=== PATIENT | male | born 1965 | race African-American/Black ===

== ENCOUNTER 2022-02-04 22:39 | Emergency (ER) | payer MEDICAID ==
[~2022-02-04] VITALS: Ht 182.9 cm; Wt 149.7 kg
[2022-02-05] MEDS ORDERED: ASCO500C18 PO (01:22)
[2022-02-05] MEDS ORDERED: POTA10CA43 PO (01:22)
[2022-02-05] MEDS ORDERED: GABA-532 PO (01:22)
[2022-02-05] MEDS ORDERED: ZINC10LO5 PO (01:22)
[2022-02-05] MEDS ORDERED: CARV25TA2 PO (01:22)
[2022-02-05] MEDS ORDERED: AMLO10TA59 PO (01:22)
[2022-02-05] MEDS ORDERED: FAMO-132 PO (01:22)
[2022-02-05] MEDS ORDERED: ATOR20TA PO (01:22)
[2022-02-05] MEDS ORDERED: tumeric PO (01:22)
[2022-02-05] MEDS ORDERED: PRAZ2CAP2 PO (01:22)
[2022-02-05] MEDS ORDERED: TAMS-3 PO (01:22)
[2022-02-05] MEDS ORDERED: ALLO300T2 PO (01:22)
[2022-02-05] MEDS ORDERED: ASPI81TA31 PO (01:22)
[2022-02-05] MEDS ORDERED: CLON0.1T PO (01:22)
[2022-02-05] MEDS ORDERED: LISI40TA13 PO (01:22)
[2022-02-05] MEDS ORDERED: HYDR100T27 PO (01:22)
[2022-02-05] MEDS ORDERED: CHOL3000 PO (01:22)
[2022-02-05] MEDS ORDERED: LORA10TA7 PO (01:22)
[2022-02-05] MEDS ORDERED: MULT-594 PO (01:22)
[2022-02-05] MEDS ORDERED: FURO40TA5 PO (01:22)
[2022-02-05] MEDS ORDERED: METF-495 PO (01:24)
--- NOTE | 2022-02-05 01:24 | NUR ---
pt ambulated to room 5a c/o bilateral flank pain.
--- NOTE | 2022-02-05 01:26 | NUR ---
Dr. Rahman at bedside for MSE.
[2022-02-05] MEDS ORDERED: KETOROLAC TROMETHAMINE 60 MG INJ IM ONE ×2 (01:44→01:45)
[2022-02-05] MEDS ORDERED: ONDANSETRON HCL 4 MG TABLET ONE (01:44)
[2022-02-05] MEDS ORDERED: ONDANSETRON HCL 4 MG TABLET PO ONE (01:45)
[2022-02-05] MEDS ORDERED: HYDROMORPHONE 1 MG/1 ML DISP.SYRIN ONE (01:45)
[2022-02-05] MEDS ORDERED: HYDROMORPHONE 2 MG/1 ML DISP.SYRIN ONE (01:45)
[2022-02-05] MEDS ORDERED: HYDROMORPHONE 1 MG/1 ML DISP.SYRIN IM ONE (01:45)
[2022-02-05 01:51] LABS: *BILIRUBIN,URIN NEGATIVE (NEGATIVE); *BLOOD, URINE NEGATIVE (NEGATIVE); *CLARITY,URINE CLEAR (CLEAR); *COLOR,URINE YELLOW (YELLOW); *KETONES,URINE NEGATIVE (NEGATIVE); *UROBILINOGEN,URINE 0.2 E.U./dl (NORMAL); LEUKOCYTE ESTERASE ,URINE NEGATIVE (NEGATIVE); NITRITE, URINE NEGATIVE (NEGATIVE); PH,URINE 5.5 (5.0-8.0); UGLUCOSE NEGATIVE (NEGATIVE)
[2022-02-05 01:52] LABS: HEMATOCRIT 37.6 % (36.7-47.1); MEAN CORPUSCULAR HEMOGLOBIN 30.9 uug (23.8-33.4); MEAN CORPUSCULAR VOLUME 92.3 fL (73.0-96.2); PLATELET COUNT (AUTO) 196 K/uL (152-348)
[2022-02-05 02:01] LABS: CREATININE 1.4 mg/dL (0.6-1.3); POTASSIUM 3.3 mmol/L (3.5-5.1)
--- NOTE | 2022-02-05 02:25 | NUR ---
pt taken to cat scan.
--- NOTE | 2022-02-05 02:45 | NUR ---
pt return from cat scan.
[2022-02-05] MEDS ORDERED: MAGNESIUM SULFATE/D5W 100 ML IV SCH (03:00)
[2022-02-05] MEDS ORDERED: MAGNESIUM SULFATE 1 GM/2 ML VIAL ONE (03:10)
--- NOTE | 2022-02-05 04:00 | NUR ---
Dr. Rahman at bedside speaking with the pt.
[2022-02-05] MEDS: MAGNESIUM SULFATE/D5W 100 ML IV SCH ×3 (04:01→05:26)
[2022-02-05] MEDS ORDERED: OXYC-128 PO (04:12)
[2022-02-05] MEDS ORDERED: POTASSIUM BICARBONATE/CIT AC 25 MEQ TABLET.EFF ONE (04:23)
[2022-02-05] MEDS ORDERED: POTASSIUM BICARBONATE/CIT AC 25 MEQ TABLET.EFF PO ONE (04:30)
--- NOTE | 2022-02-05 05:27 | NUR ---
pt received a total of 3 gm magnessium ivpb. original order was 4 gms, only [address] Rahman changed the order to 3 gms.
--- NOTE | 2022-02-05 05:28 | NUR ---
Patient discharged to home in stable condition. Written and verbal after care instructions given. Patient verbalizes understanding of instructions. Stressed follow up or return to ER for worsening s/s.
[2022-02-05 05:50] VITALS: BP 151/79
== END 2022-02-05 05:50 | disposition home or self-care (01) ==
LOC: ER 22:48
DX: S39.012A Strain of muscle, fascia and tendon of lower back, initial encounter (principal); X58.XXXA Exposure to other specified factors, initial encounter; Y92.89 Other specified places as the place of occurrence of the external cause; E83.42 Hypomagnesemia; E11.9 Type 2 diabetes mellitus without complications; N40.0 Benign prostatic hyperplasia without lower urinary tract symptoms; E78.5 Hyperlipidemia, unspecified; Z79.84 Long term (current) use of oral hypoglycemic drugs; R94.31 Abnormal electrocardiogram [ECG] [EKG]
CPT/HCPCS: 36415; 72131; 80048; 81003; 83735; 84484; 85025; 93005; 96365; 96366; 96375; 99285; J1170 ×2; J1885; J3475; A4663; Q0162